=== PATIENT | male | born 1965 | race Caucasian/White ===

== ENCOUNTER 2017-12-27 14:05 | Outpatient (CLI) | payer BC ==
[~2017-12-27 14:05] MED LIST: Iopamidol 370 76% 100 ML VIAL ONE
--- NOTE | 2017-12-27 15:59 | CT ---
CONTRAST ENHANCED CT IMAGES OF SOFT TISSUE NECK: HISTORY: Palpable right submandibular mass. FINDINGS: Contrast-enhanced CT images of the soft tissue neck obtained. Images demonstrate an ill-defined right submandibular mass measuring approximately 1.0 x 1.4 x 1.9 cm just medial to the right platysma. This seen on axial image #35. The lesion has some peripheral en hancement and is concerning for possible inflammatory or neoplastic lesion with extension into the sewell rrounding soft tissues. Differential diagnosis includes an inflamed right superficial level II lymph node versus focal extranodal spread of tumor. Surgical consultation is recommended. There are also focal areas of soft tissue fullness in the anterior right piriform sinus seen on axial image #50. There is also some possible asymmetric enhancement involving the posterior aspect of the base of the tongue. Correlate with direct visualization. There has been surgical extraction of the right 2nd mandibular molar. IMPRESSION: 1. Possible inflamed right perimandibular lymph node with surrounding inflammatory change extending to the platysma. Other possibilities could include metastatic disease and extranodal spread of tumor surrounding neoplastic invasion. 2. Area of right piriform sinus fullness. Correlate with ENT consultation. POS: ERIKA
== END 2017-12-27 14:06 | disposition home or self-care (01) ==
LOC: SCSCT 14:05
PROVIDERS: ATTEND Dentist Oral and Maxillofacial Surgery
DX: R22.1 Localized swelling, mass and lump, neck (principal); J34.89 Other specified disorders of nose and nasal sinuses
CPT/HCPCS: 70491

== ENCOUNTER 2018-04-18 07:29 | Outpatient (CLI) | payer BC ==
--- NOTE | 2018-04-18 09:56 | CT ---
CT NECK SOFT TISSUES WITH CONTRAST: 04/18/2018 HISTORY: A 52-year-old male with: R22.1, localized swelling, mass, and lump, neck. 5 x 3 cm mass on the right, suspected/rule out malignancy. COMPARISON: 12/27/2017 FINDINGS: There is a new, approximately 1 x 1 x 1 cm, moderately low attenuation lesion in the left sublingual space, with a density of 27 HU. There is a second, similar-appearing low density lesion, centered at the junction between the left mylohyoid muscle and the anterior belly of the left digastric muscle, slightly to the left of midline. These are of uncertain etiology and significance. The latter lesio n was present, in retrospect, on the previous CT, but was smaller and somewhat inconspicuous, with th e appearance of artifact at that time. The previously mentioned lesion in the right submandibular space, just deep to the right platysma mus camille, with surrounding edema, has either improved or resolved. However, located more superficially an d posteriorly, there is a new cutaneous mass, exophytically arising from a broad base at the skin, me asuring approximately 1.5 x 0.5 x 2 cm, which has soft tissue density. It appears to contact the plat ysma muscle, but does not appear to penetrate deep to it. Again noted is the approximately 1 x 0.5 cm soft tissue density, located at the far lateral aspect of the right paraglottic space, with its posterior aspect protruding into the anterior portion of the r ight piriform sinus. This has not changed. The rest of the larynx is unremarkable. There is no cer vical lymphadenopathy. The parapharyngeal, retropharyngeal, perivertebral, parotid, submandibular, barker peeler, and posterior cervical spaces are unremarkable. IMPRESSION: 1. New, broad right cutaneous mass in the right anterolateral upper neck. This should be accessible to direct visualization. Recommend clinical correlation. The appearance on the CT is nonspecific. 2. Two nonspecific low attenuation lesions, one in the left sublingual space and the other at the ju nction between the left mylohyoid muscle and the anterior belly of the left digastric muscle, slightl y to the left of midline. Etiology and significance are uncertain. 3. Small focal soft tissue density at the lateral aspect of the right larynx, encroaching upon the h ypopharynx, unchanged since 12/27/2017. This is also nonspecific. 4. Recommend continued follow-up CT of neck in six months. POS: CET
== END 2018-04-18 07:30 | disposition home or self-care (01) ==
LOC: SCSCT 07:29
PROVIDERS: ATTEND Otolaryngology Plastic Surgery within the Head & Neck
DX: R22.1 Localized swelling, mass and lump, neck (principal); J38.7 Other diseases of larynx; K14.9 Disease of tongue, unspecified
CPT/HCPCS: 70491